=== PATIENT | female | born 2000 | race Two or more races ===

== ENCOUNTER 2023-03-30 00:04 | Emergency (ER) | payer OTHER ==
[2023-03-30] MEDS ORDERED: ACETAMINOPHEN 325 MG TABLET PO STA (00:22)
[2023-03-30] MEDS ORDERED: ONDANSETRON ODT 4 MG TABLET TL STA (00:58)
[2023-03-30 01:20] LABS: BILIRUBIN,URINE NEGATIVE (NEGATIVE); GLUCOSE, URINE (UA) NEGATIVE (NEGATIVE); KETONES,URINE (UA) TRACE mg/dL (NEGATIVE); LEUKOCYTE ESTERASE, URINE NEGATIVE (NEGATIVE); NITRITE,URINE NEGATIVE (NEGATIVE); OCCULT BLOOD,URINE TRACE-LYSE (NEGATIVE); PROTEIN,URINE NEGATIVE (NEGATIVE); UROBILINOGEN,URINE 0.2 (NORMAL) E.U./dL (NORMAL)
[2023-03-30 01:22] VITALS: BP 109/59; O2SAT 99
[2023-03-30 01:22] LABS: CLARITY,URINE CLEAR (CLEAR); HCG UR QUAL POSITIVE
[2023-03-30 01:30] LABS: BACTERIA,URINE Rare /HPF (None Seen); RBC,URINE 0-5 /HPF (0-5); SQUAMOUS EPITHELIAL CELL,UR FEW Squamous (<= Few); WBC,URINE 0-3 /HPF (0-5)
[2023-03-30 02:03] LABS: B. PARAPERTUSSIS- RESP PCR PAN NOT DETECTED; B. PERTUSSIS- RESP PCR PANEL NOT DETECTED; C. PNEUMONIAE- RESP PCR PANEL NOT DETECTED; CORONAVIRUS 229E-RESP PCR NOT DETECTED; CORONAVIRUS HKU1-RESP PCR NOT DETECTED; CORONAVIRUS NL63-RESP PCR NOT DETECTED; CORONAVIRUS OC43-RESP PCR NOT DETECTED; HUMAN METAPNEUMOVIRUS NOT DETECTED; INFLUENZA A- RESP PCR PANEL NOT DETECTED; INFLUENZA B - RESP PCR PANEL NOT DETECTED; M. PNEUMONIAE- RESP PCR PANEL NOT DETECTED; PARAINFLUENZA VIRUS 1 NOT DETECTED; PARAINFLUENZA VIRUS 2 NOT DETECTED; PARAINFLUENZA VIRUS 3 NOT DETECTED; PARAINFLUENZA VIRUS 4 NOT DETECTED; RHINOVIRUS/ENTEROVIRUS NOT DETECTED; RSV- RESP PCR PANEL NOT DETECTED; SARS-CoV-2 -RESP PCR PANEL NOT DETECTED
--- NOTE | 2023-03-30 02:04 | ED Physician Documentation ---
History of Present Illness - Stated complaint Stated Complaint: CHILLS/NAUSEA/7 WKS PG - Chief complaint Chief Complaint: Abd Pain - History obtained from History obtained from: Patient - Additonal information Additional information: 22yF at 7wga presents to the ED with nbnb n/v this morning and chills overnight, with generalized malaise. denies cough, sore thorat, rhinorrhea, congestion, diarrhea abdominal pain or urinary symptoms. patient denies bloody discharge or lower abdominal cramping. Review of Systems Constitutional: denies: Fever, Chills PD PAST MEDICAL HISTORY - Past Medical History Past Medical History: No Cardiovascular: None Respiratory: None Neuro: None Endocrine/Autoimmune: None GI: None [employer]: None : None HEENT: None Psych: None Musculoskeletal: None Derm: None - Past Surgical History Past Surgical History: No - Present Medications Home Medications: Ambulatory Orders Medication Instructions Recorded Confirmed No Known Home Medications 03/30/23 03/30/23 - Allergies Allergies/Adverse Reactions: Allergies Allergy/AdvReac Type Severity Reaction Status Date / Time No Known Drug Allergies Allergy Verified 03/30/23 00:11 - Social History Does the pt smoke?: No Smoking Status: Never smoker Does the pt drink ETOH?: No Does the pt have substance abuse?: No - Immunizations Immunizations are current?: Yes - POLST Patient has POLST: No PD ED PE NORMAL - Vitals Vital signs reviewed: Yes - General General: Alert and oriented X 3, No acute distress, Well developed/nourished - HEENT HEENT: Atraumatic, PERRL, EOMI, Moist mucous membranes, Pharynx benign - Neck Neck: Supple, no meningeal sign - Cardiac Cardiac: RRR - Respiratory Respiratory: No respiratory distress, Clear bilaterally - Abdomen Abdomen: Non tender, Non distended, Other (POCUS performed with pole visible. unable to detect HR 2/2 early ) - Back Back: No CVA TTP - Derm Derm: Normal color, Warm and dry - Extremities Extremities: No deformity - Neuro Neuro: No motor deficit, No sensory deficit Results - Vitals Vitals: Vital Signs - 24 hr 03/30/23 03/30/23 00:11 00:55 Temperature 37.0 C 36.9 C Heart Rate 100 92 Respiratory 16 16 Rate Blood Pressure 140/88 H 109/59 L O2 Saturation 98 99 Oxygen O2 Source Room air - Labs Labs: Laboratory Tests 03/30/23 03/30/23 01:15 01:15 Urine Color YELLOW Urine Clarity CLEAR Urine pH 6.0 Ur Specific [place] 1.020 Urine Protein NEGATIVE Urine Glucose (UA) NEGATIVE Urine Ketones TRACE Urine Occult Blood TRACE-LYSE Urine Nitrite NEGATIVE Urine Bilirubin NEGATIVE Urine Urobilinogen 0.2 (NORMAL) Ur Leukocyte Esterase NEGATIVE Urine RBC 0-5 Urine WBC 0-3 Ur Squamous Epith Cells FEW Squamous Urine Bacteria Rare Urine Culture Comments NOT INDICATED Urine HCG, Qual POSITIVE PD Medical Decision Making - ED course ED course: 22yF presents to the ED with nbnb n/v and malaise, improving s/p tylenol and zofran. symptomatic care discussed. u/a negative for infection. plan to f/u outpatient with shoe cobbler. return precautions given. Departure - Departure Disposition: 01 Home, Self Care Clinical Impression: Chills, Nausea, Early stage of Condition: Stable Instructions: ED Preg Morning Sickness Comments: You were seen in the emergency department for nausea and feeling ill. You got zofran and tylenol in the emergency department. Please follow-up with your shoe cobbler and return to the emergency department if you have any new or worsening symptoms or other concerns.
== END 2023-03-30 02:08 | disposition home or self-care (01) ==
LOC: ED 00:04
DX: O26.891 Other specified pregnancy related conditions, first trimester (principal); R11.2 Nausea with vomiting, unspecified; Z3A.01 Less than 8 weeks gestation of pregnancy
CPT/HCPCS: 81001; 81025; 87633; 99283; A9270; Q0162; 87086

== ENCOUNTER 2023-05-18 12:11 | Outpatient (CLI) | payer OTHER ==
[2023-05-18 12:29] LABS: BASOPHILS % (AUTO) 0.4 %; EOSINOPHILS # (AUTO) 0.1 10^3/uL (0.0-0.7); EOSINOPHILS % (AUTO) 0.4 %; HCT - HEMATOCRIT 39.4 % (37.0-47.0); HGB - HEMOGLOBIN 12.9 g/dL (12.0-16.0); LYMPHOCYTES # (AUTO) 2.1 10^3/uL (1.5-3.5); LYMPHOCYTES % (AUTO) 18.5 %; MEAN CORPUSCULAR HEMOGLOBIN 29.4 pg (27.0-31.0); MEAN CORPUSCULAR HGB CONC 32.7 g/dL (32.0-36.0); MEAN CORPUSCULAR VOLUME 89.7 fL (81.0-99.0); MEAN PLATELET VOLUME 9.3 fL (7.9-10.8); MONOCYTES # (AUTO) 0.5 10^3/uL (0.0-1.0); MONOCYTES % (AUTO) 4.8 %; NEUTROPHILS # (AUTO) 8.4 10^3/uL (1.5-6.6); NEUTROPHILS % (AUTO) 75.6 %; PLT - PLATELET COUNT 274 10^3/uL (130-450); RED BLOOD COUNT 4.39 10^6/uL (4.20-5.40); RED CELL DISTRIBUTION WIDTH 12.7 % (12.0-15.0); WHITE BLOOD COUNT 11.2 x10^3/uL (4.8-10.8)
[2023-05-19 04:10] LABS: HBsAG SCREEN Negative (Negative); RPR Non Reactive (Non Reactive)
[2023-05-19 12:09] LABS: VARICELLA-ZOSTER AB IGG <135 index (Immune >165)
[2023-05-20 08:08] LABS: HCV AB Non Reactive (Non Reactive)
[2023-05-20 11:08] LABS: HIV SCREEN 4TH GENERATION Non Reactive (Non Reactive)
== END 2023-05-18 12:12 | disposition home or self-care (01) ==
LOC: LAB 12:11
PROVIDERS: ATTEND Obstetrics & Gynecology
DX: Z34.90 Encounter for supervision of normal pregnancy, unspecified, unspecified trimester (principal)
CPT/HCPCS: 36415; 85025; 86592; 86762; 86787; 86803; 86850; 86900; 86901; 87340; 87389

== ENCOUNTER 2023-06-11 00:36 | Emergency (ER) | payer OTHER ==
[2023-06-11 00:45] VITALS: O2SAT 98
[2023-06-11] MEDS: SODIUM CHLORIDE 0.9% 1,000 ML IV STA (01:07)
[2023-06-11] MEDS: ONDANSETRON 4 MG/2 ML VIAL IVP STA (01:07)
--- NOTE | 2023-06-11 01:56 | ED Physician Documentation ---
PD HPI NVD - Stated complaint Stated Complaint: VOMITING - Chief complaint Chief Complaint: Abd Pain - History obtained from History obtained from: Patient, Family - Additonal information Additional information: The patient comes to the emergency department chief complaint of nausea and vomiting. She is 17 weeks and has had nausea her entire . She states that she usually goes 1 or 2 days without vomiting in between 1 day of vomiting. She was using ODT Zofran for a while but it made her feel very strange and she states that she did not want to take it anymore. The patient denies fevers or chills. She states that she has been able to keep her vitamins down every day. She is followed by OB. PD PAST MEDICAL HISTORY - Past Medical History Past Medical History: No Cardiovascular: None Respiratory: None Neuro: None Endocrine/Autoimmune: None GI: None PROGRAM PARAPROFESSIONAL: None : None HEENT: None Psych: None Musculoskeletal: None Derm: None - Past Surgical History Past Surgical History: No - Present Medications Home Medications: Ambulatory Orders Medication Instructions Recorded Confirmed ONDANSETRON ODT Prepack 2 [ZOFRAN 4 mg PO Q8HR PRN 06/11/23 06/11/23 ODT] Vit No.129/Iron/Folic 1 tab PO DAILY 06/11/23 06/11/23 [ One Daily Tablet] Promethazine [Phenergan] 25 mg PO Q6H PRN #20 tab 06/11/23 Pyridoxine HCl (Vitamin B6) 50 mg PO DAILY 06/11/23 06/11/23 [Vitamin B6] - Allergies Allergies/Adverse Reactions: Allergies Allergy/AdvReac Type Severity Reaction Status Date / Time No Known Drug Allergies Allergy Verified 06/11/23 00:44 - Social History Does the pt smoke?: No Smoking Status: Never smoker Does the pt drink ETOH?: No Does the pt have substance abuse?: No - Immunizations Immunizations are current?: Yes - POLST Patient has POLST: No PD ED PE NORMAL - Vitals Vital signs reviewed: Yes - General General: Alert and oriented X 3, No acute distress, Well developed/nourished - HEENT HEENT: Atraumatic, EOMI, Moist mucous membranes - Neck Neck: Supple, no meningeal sign - Cardiac Cardiac: RRR, No murmur - Respiratory Respiratory: No respiratory distress, Clear bilaterally - Abdomen Abdomen: Soft, Non tender, Other (Gravid, consistent with history.) - Derm Derm: Normal color, Warm and dry, No rash - Extremities Extremities: No deformity, No edema - Neuro Neuro: Alert and oriented X 3, Other (Grossly intact) - Psych Psych: Normal mood, Normal affect Results - Vitals Vitals: Vital Signs - 24 hr 06/11/23 00:38 Temperature 36.8 C Heart Rate 115 H Respiratory 16 Rate Blood Pressure 124/78 O2 Saturation 98 Oxygen O2 Source Room air PD Medical Decision Making - ED course Complexity details: reviewed results, re-evaluated patient, considered differential, d/w patient, d/w family ED course: The patient was given a liter of 0.9 normal saline in the emergency department, as well as an IV dose of Zofran which did help her nausea. heart tones were found to be 150s. I had a long discussion with the patient and her . They are concerned that she is not getting enough nutrition, and I stated that ultimately, this concern would need to be addressed by OB. However, the patient is having 1 or 2 days without vomiting, then an intervening day of having vomiting. I encouraged her to drink extra water on the good days and eat extra food, especially high nutrition foods on those days, as well. I have offered to prescribe her a different antiemetic in suppository or oral form and she prefers to try oral. She has an appointment coming up with her OB in 5 days and I have encouraged her to bring her concerns up with her OB as well. We have discussed the usual indications for return. Departure - Departure Disposition: 01 Home, Self Care Clinical Impression: Hyperemesis gravidarum Condition: Stable Instructions: Hyperemesis Prescriptions: Promethazine [Phenergan] 25 mg PO Q6H PRN #20 tab PRN Reason: Nausea / Vomiting Comments: While it is not the most ideal situation, and while most cases of related nausea and vomiting resolved after the first trimester, there are also many women who have nausea that last throughout the entire . Unfortunately, this makes for a miserable time for 9 months, and for some people, not much helps the nausea and vomiting. There is still several medications for nausea you have not tried, however, I am it is worth seeing if any of the others work better so that you can hold food and fluids down. We will try one of the nausea medications in pill form, as you have requested. A prescription for this has been electronically transmitted to the [facility] pharmacy in [place]. You should try to drink extra fluids on the days where when you are not vomiting, and you should also try to eat extra portions of healthy food to make it for the days you are not able to eat much. Please keep your appointment with your OB this coming Sunday and make sure to bring up your concerns with him or her as well. If you feel like you are getting dehydrated and you just have not been able to keep any fluids down at all for a few days, then you may return to the emergency department for IV fluids. Your heart tones sound good today, and there is no evidence of any problem with your baby. Forms: PCP List
[2023-06-11 02:07] VITALS: BP 116/71
== END 2023-06-11 02:02 | disposition home or self-care (01) ==
LOC: ED 00:36
DX: O21.0 Mild hyperemesis gravidarum (principal); Z3A.17 17 weeks gestation of pregnancy
CPT/HCPCS: 96374; 99283